=== PATIENT | male | born 1955 | race Caucasian/White ===

== ENCOUNTER → 2017-11-13 | Outpatient (CLI) | payer BC ==
--- NOTE | 2017-11-13 20:17 | CONS ---
CONSULTATION REASON FOR CONSULTATION: Snoring. This is a 62-year-old male patient, referred to the sleep center upon the request of his because of loud snoring. The patient is snoring very loudly, to the point where the patient is unable to sleep in the same bedroom with his , and they are currently sleeping in separate bedrooms. He himself denies having to quit breathing at night, nor does he have any episodes of waking up gasping for air or any choking sensation. He sleeps a good 7 to 8 hours. He goes to bed around 10:30 p.m., wakes up at 5:30 a.m. in the morning, and the patient does not have any tiredness or sleepiness during the day. No recent weight gain. His current [place] score is 6. He drinks 2 to 3 beers in the evening, No history of smoking. No reported history of sleep apnea. No history of daytime drowsiness. No history of any coronary artery disease or heart attacks. No history of any head and neck trauma. No issues with obstruction of nasal passages or postnasal drainage or rhinitis. PAST MEDICAL HISTORY: Negative. PAST SURGICAL HISTORY: 1. Appendectomy. 2. Colonoscopy. 3. Knee arthroscopy. DRUG ALLERGIES: NOT KNOWN. OUTPATIENT MEDICATIONS: None. SOCIAL HISTORY: The patient is a nonsmoker. Drinks 1 to 2 beers at nighttime. No history of alcoholism. No history of IV drugs. FAMILY HISTORY: Noncontributory. Negative for sleep apnea. There is positive family history for snoring. REVIEW OF SYSTEMS: Twelve-point review of systems was done. Positive findings are all mentioned above in the history of present illness. He wears a bite guard for grinding. No sleepwalking. Wakes up occasionally with a dry mouth. No anxiety or panic attacks. No heartburn. No palpitation. No nocturia. No restlessness in the lower extremities. No claustrophobia. No sexual dysfunction. No depression. PHYSICAL EXAMINATION: BP is 102/78, pulse 80, respirations 16, temperature 99.7, saturation 96% on room air. Neck size 17-1/2 inches. Weight is 204. Height is 5 feet 11 inches. [place] score is 6. GENERAL APPEARANCE: Calm, comfortable. Head is atraumatic, normocephalic. Neck is short, supple. Crowding of the posterior pharynx. Mallampati class 4. No overbite. LUNGS: Clear to auscultation. Heart sounds are regular rate and rhythm. Normal S1, S2. No S3, S4. No murmurs. ABDOMEN: Soft, nontender. No organomegaly. EXTREMITIES: No edema. No cyanosis or clubbing at this point. IMPRESSION: Snoring. Overall suspicion for obstructive sleep apnea is low, based on his clinical presentation. PLAN: We discussed various treatments offered for snoring. The patient was made aware that there is no certain treatment that can completely stop snoring. There are certain interventions that can be done to lessen the severity of snoring, and this includes weight loss, avoiding alcohol and sedative medications before bedtime, knowing that these can relax the throat and the tongue muscles. The patient was asked to sleep on his side to prevent the tongue from blocking the throat. Other options are oral appliance or anti-snore appliance. There are special dental appliances that can cause mandibular advancements and offer some relief in severe sleep apnea. Positive airway pressure can be utilized only if the patient has sleep apnea, and for that reason a home sleep study was ordered to assess the presence of sleep apnea. Surgeries for snoring are intended to widen the airway by removing tissue in the back of the throat, and this includes UPPP. Other procedures are radiofrequency ablation and/or pillar procedure. All of these interventions are not definitive treatments or effective treatments for snoring, and he was made aware of that. Proceed with a home sleep study and make further recommendations based on the findings. MMODL / IJN: [id number] /
== END | disposition home or self-care (01) ==
LOC: SLEEP 16:33
PROVIDERS: ATTEND Internal Medicine Critical Care Medicine
DX: R06.83 Snoring (principal); Z90.89 Acquired absence of other organs; Z98.890 Other specified postprocedural states
CPT/HCPCS: 99211

== ENCOUNTER → 2018-02-19 | Outpatient (CLI) | payer BC ==
--- NOTE | 2018-02-19 17:13 | PN ---
PROGRESS NOTE Jose Enrique is a 62-year-old male patient coming in for a compliancy check regarding his obstructive sleep apnea. The patient has been diagnosed having mild obstructive sleep apnea with AHI of 13. However, his sleep disease worse while in supine. Still he reported also loud snoring at time of admission, with some sleep fragmentation. He is trying to become more compliant to CPAP unit. He is currently using a full size face mask which later on got switched to a nose mask including the Eson nose mask and later on the patient was given AirFit P10 by a friend. All of these masks have not given this patient satisfactory mask seal. At this point in time, he is looking for alternatives. I had a lengthy discussion with the patient. The patient was given different options and ultimately decided to go with a DreamWear nose pillow. His compliance data is poor. His AHI while on treatment is down to 4.5, however he is having difficulty tolerating the CPAP unit and his CPAP use for more than 4 hours is 17 out of the past 29 days. REVIEW OF SYSTEMS: 12-point review of system was done. Positive findings are mentioned above in history of present illness. PHYSICAL EXAMINATION: BP is 159/89, pulse 80, respirations 16 and weight is 198, saturation 96% on room air. Temperature 98.6. General appearance: Calm and comfortable. HEENT: Head is atraumatic, normocephalic. NECK: Supple. No JVD. No goiter or neck masses. LUNGS: Diminished breath sounds. Otherwise clear. HEART: Sounds regular rate and rhythm. Normal S1, S2. No S3. No murmurs. ABDOMEN: Soft, nontender. No organomegaly. EXTREMITIES: No edema. No cyanosis or clubbing. IMPRESSION: 1. Symptomatic obstructive sleep apnea, AHI of 13, worse while supine, currently on CPAP unit. 2. Difficulty tolerating CPAP unit may be due to mask interface. 3. Loud snoring. PLAN: 1. Offer this patient a DreamWear nose mask. 2. See me back in short term followup to make sure that he is compliant in meeting insertion insurance guidelines for compliancy. 3. Encourage weight loss. 4. Implement good sleep hygiene measures. 5. We will continue to follow. MMODL / IJN: [id number] /
== END | disposition home or self-care (01) ==
LOC: SLEEP 15:02
PROVIDERS: ATTEND Internal Medicine Critical Care Medicine
DX: G47.33 Obstructive sleep apnea (adult) (pediatric) (principal); Z99.89 Dependence on other enabling machines and devices

== ENCOUNTER → 2018-03-19 | Outpatient (CLI) | payer BC ==
--- NOTE | 2018-03-19 20:01 | PN ---
PROGRESS NOTE This is a 62-year-old male patient who was originally referred to me for loud snoring. He had no major hypersomnia or sleepiness. He underwent a sleep evaluation and the patient was found to have mild obstructive sleep apnea with an AHI of 13 and his sleep was worse in the supine body position. I saw him in followup on 02/19/2013. At that time, he was having difficulty tolerating the CPAP treatment and his treatment and compliancy was suboptimal. I went over various mask being nose mask and fullface masks and ultimately I gave this patient AirFit F20 full face mask. The treatment itself was successful. The patient has demonstrated excellent compliancy with CPAP use for more than 4 hours achieving more than 80%. The patient's average CPAP use more than 4 hours per night. His AHI has been less than 5. Never the less, he reports that his sleep quality has gotten worse and he is waking up much more tired and sleepy while being on CPAP treatment. He has done aggressive efforts to improve his sleep apnea by losing weight. He has been able to lose 7 pounds and he is also avoiding to drink alcohol late in the afternoon or early evening hours. He is contemplating to stop the treatment for now. REVIEW OF SYSTEMS: 12-point review of system was done. Positive findings are mentioned above history of present illness. PHYSICAL EXAMINATION: BP is 165/96, pulse 98, respirations 16, temperature 98.1 saturation 95% on room air. GENERAL APPEARANCE: Calm, comfortable. Head is atraumatic, normocephalic. NECK: Supple. No JVD. No goiter or masses. No neck masses. LUNGS: Clear to auscultation. HEART: Sounds are regular rate and rhythm. Normal S1, S2. No S3. No murmurs. ABDOMEN: Soft, nontender. No organomegaly. EXTREMITIES: No edema. No cyanosis or clubbing. IMPRESSION: 1. Mild obstructive sleep apnea with an AHI of 13. 2. Loud snoring. 3. Difficulty in tolerating the CPAP. PLAN: 1. Will discontinue CPAP therapy as long as the patient remains asymptomatic. 2. Encourage further weight loss. The patient has already lost 7 pounds and this has positively impacted his sleep apnea course and symptoms. 3. He is also to avoid drinking alcohol late at night time. 4. Implement good sleep hygiene measures. 5. Discontinue CPAP therapy at this point. Contact me back if there is any worsening the symptoms of sleep apnea in general. MMODL / IJN: [id number] /
== END | disposition home or self-care (01) ==
LOC: SLEEP 15:01
PROVIDERS: ATTEND Internal Medicine Critical Care Medicine
DX: G47.33 Obstructive sleep apnea (adult) (pediatric) (principal); Z99.89 Dependence on other enabling machines and devices

== ENCOUNTER → 2018-08-19 | Outpatient (CLI) | payer BC ==
[2018-08-20 08:54] VITALS: BMI 25.7
== END ==
LOC: DBWHC3 15:59
PROVIDERS: ATTEND Family Medicine
DX: R73.09 Other abnormal glucose (principal)
CPT/HCPCS: 97802

== ENCOUNTER 2021-03-18 07:47 | Day surgery (SDC) | payer BC, OTHER ==
[2021-03-16 11:42] VITALS: BMI 27.1
[~2021-03-18 07:47] MED LIST: LACTATED RINGERS 1,000 ML IV SCH
[2021-03-18 08:24] VITALS: TEMP 97.4
[2021-03-18] MEDS ORDERED: PROPOFOL 10 MG/ML 20 ML VIAL IV ONE (08:58)
--- NOTE | 2021-03-18 09:22 | P.OP ---
Date of Procedure: 03/18/21 Preoperative Diagnosis: Screening colonoscopy Postoperative Diagnosis: Normal appearing colon Procedure(s) Performed: Colonoscopy Anesthesia: MAC Surgeon: Parth Johnston Condition: stable Disposition: same day Description of Procedure: Patient is brought Endo suite placed in left lateral decubitus position underwent sedation per department of anesthesia performed correct patient correct procedure correct site was verified rectal exam was performed no gross abnormalities were noted scope was passed from the rectum to the cecum with the slowly withdrawn being sure to visualize all healy of the colon on the way out there is no gross abnormalities. Scope was retroflexed in the rectum no gross abnormalities are noted patient tolerated the procedure well repeat colonoscopy in 5 years due to history of polyps and family history
[2021-03-18 09:37] VITALS: BP 150/86; PULSE 67; RESP 18
== END 2021-03-18 09:47 | disposition home or self-care (01) ==
LOC: ORWHC2ENDO 07:47
PROVIDERS: ATTEND Student in an Organized Health Care Education/Training Program
DX: Z12.11 Encounter for screening for malignant neoplasm of colon (principal)
CPT/HCPCS: J2704; G0121

== ENCOUNTER 2021-07-04 15:35 | Inpatient (IN) | payer OTHER ==
--- NOTE | 2021-07-04 17:31 | ED ---
General Adult HPI - General Chief complaint: Anxiety Stated complaint: revisit - anxiety Time Seen by Provider: 07/04/21 17:26 Source: patient Mode of arrival: ambulatory Limitations: no limitations - History of Present Illness Initial comments: Dictation was produced using [employer] dictation software. please excuse any grammatical, word or spelling errors. Chief Complaint: 65-year-old male requesting EPS evaluation History of Present Illness: A 65-year-old male he has no significant past medical history. Patient states he is here requesting mental health evaluation. Patient states he feels anxious. States that he has a sense of impending doom and that he is given a lose all of his family and belongings. Patient denies any suicidal ideation. No homicidal ideation. He is been having difficulty with insomnia. States that he is trying to get some help. He does not have any medical complaints. The ROS documented in this emergency department record has been reviewed and confirmed by me. Those systems with pertinent positive or negative responses have been documented in the HPI. All other systems are other negative and/or noncontributory. PHYSICAL EXAM: General Impression: Alert and oriented x3, not in acute distress HEENT: Normocephalic atraumatic, extra-ocular movements intact, pupils equal and reactive to light bilaterally, mucous membranes moist. Cardiovascular: Heart regular rate and rhythm Chest: Able to complete full sentences, no retractions, no tachypnea Abdomen: abdomen soft, non-tender, non-distended, no organomegaly Musculoskeletal: Pulses present and equal in all extremities, no peripheral edema Motor: no focal deficits noted Neurological: CN II-XII grossly intact, no focal motor or sensory deficits noted Skin: Intact with no visualized rashes Psych: Normal affect and mood ED course: 65-year-old male presents to the emergency department requesting EPS evaluation. Vital Signs upon arrival are within acceptable limits. Patient's well-appearing at bedside. Patient medically cleared for EPS evaluation. Patient evaluated by EPS. Will be admitted to mental health unit. - Related Data Home Medications Medication Instructions Recorded Confirmed Doxylamine Succinate [Unisom] 25 mg PO HS PRN 07/04/21 07/04/21 FLUoxetine HCL [PROzac] 10 mg PO DAILY 07/04/21 07/04/21 Multivitamins, Thera [Multivitamin 1 tab PO DAILY 07/04/21 07/04/21 (formulary)] Allergies Allergy/AdvReac Type Severity Reaction Status Date / Time No Known Allergies Allergy Verified 07/04/21 18:34 Review of Systems ROS Statement: Those systems with pertinent positive or pertinent negative responses have been documented in the HPI. ROS Other: All systems not noted in ROS Statement are negative. Past Medical History Past Medical History: No Reported History History of Any Multi-Drug Resistant Organisms: None Reported Past Surgical History: Appendectomy, Orthopedic Surgery Additional Past Surgical History / Comment(s): KNEE SCOPE (NOT SURE WHICH ONE). PREVIOUS COLONOSCOPIES Past Anesthesia/Blood Transfusion Reactions: No Reported Reaction Past Psychological History: No Psychological Hx Reported Smoking Status: Never smoker Past Alcohol Use History: Daily Past Drug Use History: Marijuana - Past Family History Father Family Medical History: Cancer Additional Family Medical History / Comment(s): COLON Mother Family Medical History: Cancer Additional Family Medical History / Comment(s): BREAST Brother(s) Family Medical History: Cancer Additional Family Medical History / Comment(s): PROSTATE General Exam Limitations: no limitations Course Vital Signs 07/04/21 15:49 Temperature 97.8 F Pulse Rate 86 Respiratory 18 Rate Blood Pressure 150/91 O2 Sat by Pulse 97 Oximetry Medical Decision Making - Lab Data Lab Results 07/04/21 Range/Units 17:34 Urine Opiates Screen Not Detected (NotDetected) Ur Oxycodone Screen Not Detected (NotDetected) Urine Methadone Screen Not Detected (NotDetected) Ur Propoxyphene Screen Not Detected (NotDetected) Ur Barbiturates Screen Not Detected (NotDetected) U Tricyclic Antidepress Not Detected (NotDetected) Ur Phencyclidine Scrn Not Detected (NotDetected) Ur Amphetamines Screen Not Detected (NotDetected) U Methamphetamines Scrn Not Detected (NotDetected) U Benzodiazepines Scrn Not Detected (NotDetected) Urine Cocaine Screen Not Detected (NotDetected) U Marijuana (THC) Screen Not Detected (NotDetected) Disposition Clinical Impression: Anxiety Disposition: ADMITTED IP TO THIS [facility] Condition: Fair Instructions (If sedation given, give patient instructions): Generalized Anxiety Disorder (ED) Referrals: Lele Whitmore DO [Primary Care Provider] - 1-2 days
[2021-07-04 18:38] LABS: Amphetamine Screen,Urine Not Detected (NotDetected); Barbiturate Screen,Urine Not Detected (NotDetected); Benzodiazepines Screen,Urine Not Detected (NotDetected); Cocaine Screen,Urine Not Detected (NotDetected); Methadone Screen, Urine Not Detected (NotDetected); Opiate Screen,Urine Not Detected (NotDetected); Oxycodone Screen, Urine Not Detected (NotDetected); Phencyclidine Screen,Urine Not Detected (NotDetected); Tricyclic Antidepressant,Urine Not Detected (NotDetected); Urn Cannabinoid Scrn Not Detected (NotDetected)
[2021-07-04] MEDS ORDERED: LORazepam 1 MG TAB PO STA (20:55)
[2021-07-05] MEDS ORDERED: ACETAMINOPHEN TAB 325 MG TAB PO PRN (00:05)
[2021-07-05] MEDS ORDERED: MAG HYDROX/AL HYDROX/SIMETH 30 ML CUP PO PRN (00:05)
[2021-07-05] MEDS ORDERED: MAGNESIUM HYDROXIDE 2,400 MG/10 ML CUP PO PRN (00:05)
[2021-07-05] MEDS ORDERED: LORazepam 1 MG TAB PO PRN (00:05)
[2021-07-05] MEDS ORDERED: HALOPERIDOL LACTATE 5 MG/ML 1 ML VIAL IM PRN (00:05)
[2021-07-05] MEDS ORDERED: traZODone HCL 100 MG TAB PO PRN (00:06)
[2021-07-05] MEDS ORDERED: haloperidoL 5 MG TAB PO PRN (00:06)
[2021-07-05] MEDS ORDERED: LORazepam 2 MG/ML INJ IM PRN (00:06)
[2021-07-05] MEDS ORDERED: FLUoxetine HCL 10 MG CAP PO SCH (09:00)
--- NOTE | 2021-07-05 11:35 | P.HP ---
Psychiatric H&P - . H&P Date: 07/05/21 History & Physical: Allergies Allergy/AdvReac Type Severity Reaction Status Date / Time No Known Allergies Allergy Verified 07/04/21 18:34 Vital Signs Temp 97.8 F 07/04/21 15:49 Pulse 86 07/04/21 15:49 Resp 18 07/04/21 15:49 BP 150/91 07/04/21 15:49 Pulse Ox 97 07/04/21 15:49 Intake & Output 07/04/21 07/05/21 07/05/21 18:59 06:59 18:59 Weight 85.275 kg Laboratory Last Values Urine Opiates Screen Not Detected (NotDetected) 07/04/21 17:34 Ur Oxycodone Screen Not Detected (NotDetected) 07/04/21 17:34 Urine Methadone Screen Not Detected (NotDetected) 07/04/21 17:34 Ur Propoxyphene Screen Not Detected (NotDetected) 07/04/21 17:34 Ur Barbiturates Screen Not Detected (NotDetected) 07/04/21 17:34 U Tricyclic Antidepress Not Detected (NotDetected) 07/04/21 17:34 Ur Phencyclidine Scrn Not Detected (NotDetected) 07/04/21 17:34 Ur Amphetamines Screen Not Detected (NotDetected) 07/04/21 17:34 U Methamphetamines Scrn Not Detected (NotDetected) 07/04/21 17:34 U Benzodiazepines Scrn Not Detected (NotDetected) 07/04/21 17:34 Urine Cocaine Screen Not Detected (NotDetected) 07/04/21 17:34 U Marijuana (THC) Screen Not Detected (NotDetected) 07/04/21 17:34 Coronavirus (PCR) Not Detected (Not Detectd) 07/05/21 01:30 07/05/21 11:35 IDENTIFYING DATA: Patient is a , retired, 65-year-old male with no significant psychiatric history, who presented to the hospital with elevated anxiety and suicidal ideation. HPI: Patient presented to the hospital on 07/04/2021, brought in by his and [id number] for a psychiatric assessment. As previously reported, the patient appeared to be very anxious and displayed significant psychomotor agitation while being examined in the emergency department. The patient had to undergo some breathing exercises in order to calm down enough to speak with the EPS nurse. The patient reported that he has been experiencing intermittent suicidal ideation and elevated anxiety. He reported that he was experiencing constant racing thoughts that were intrusive to the point that he has not slept for more than an hour or 2 per night for the past week. He has also had a significant decrease in his appetite. Family has been concerned that the patient has also l ost a lot of weight. The patient signed himself voluntarily on to the psychiatric unit. On examination the psychiatric unit, the patient reports that he has been feeling elevated anxiety and symptoms of depression since late April. He reports that he has been undergoing numerous life stressors including worrying about the foundation of his home, the need to buy his son of motor vehicle, his son's recent manic/psychotic break over the past year, as well as generalized anxiety of things including if he wired things correctly while he was working, as well as feeling shame and guilt from pornography that he has watched. The patient reports that along with his elevated anxiety, he has been experiencing significant symptoms of depression including decreased appetite, hopelessness, helplessness, anhedonia, and even suicidal ideation. He however denies any intention or plan and reports no prior attempts at suicide. In regards to sleep, the patient reports that he has been only receiving 2-3 hours of sleep per night. He states that he is constantly thinking about the various stressors and things that worry him. In regards to bipolar disorder, the patient denies any history of excessive energy, excessive spending, grandiosity, or impulsivity. He reports no history of auditory or visual hallucinations. He denies any paranoia or other delusions. PAST PSYCHIATRIC HISTORY: Patient states that his son recently had an episode of corinna. The patient was most recently started on Prozac and Unisom a few days prior to this admission. Patient denies any previous psychiatric hospital izations. He has a remote history of therapy which she went to after the of his father 1983 however has not followed with any outpatient psychotherapist or psychiatrist since. Patient denies any history of suicide attempts in the past. PMH: Past Medical History: No Reported History History of Any Multi-Drug Resistant Organisms: None Reported Past Surgical History: Appendectomy, Orthopedic Surgery Additional Past Surgical History / Comment(s): KNEE SCOPE (NOT SURE WHICH ONE). PREVIOUS COLONOSCOPIES Past Anesthesia/Blood Transfusion Reactions: No Reported Reaction Past Psychological History: No Psychological Hx Reported Smoking Status: Never smoker Past Alcohol Use History: Daily Past Drug Use History: Marijuana ALLERGIES: NO KNOWN DRUG ALLERGIES CHEMICAL DEPENDENCY HISTORY: The patient reports that he has been drinking 2-3 alcoholic beverages 5 days a week. He reports no tobacco use or illicit drug use. He does report a remote history of marijuana use. No reported history of alcohol withdrawal. FAMILY PSYCHIATRIC/SUBSTANCE USE HISTORY: Son with recent manic episode. SOCIAL HISTORY: Patient was born and raised in [place], [place]. 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 He has been to his [place] for the past 38 years. He has a son and daughter. His son lives in [place] and his daughter lives in [place]. He denies any legal history, service, but reports that he is of the [employer]. He states that he is part of a stricter sect of the [employer] mand[employer]. MENTAL STATUS EXAM: General Appearance: Patient appears to be stated age is alert, directable, and attempts to cooperate. Patient appears to have fair hygiene and grooming. Behavior: Patient is seated with elevated psychomotor activity. Eye contact is intermittent. Speech: Patient's speech is fluent and nonpressured. Mood/Affect: Patient reports their mood is anxious, affect is congruent and nervous. Suicidality/Homicidality: Patient denies having any homicidal ideation intent or plan. Denies any suicidal ideations intent or plan Perceptions: Patient denies any visual hallucinations and denies any auditory hallucinations Though content/process: There is no evidence of any delusional thought content and thought process is linear and goal-directed. Memory and concentration: AOX3, grossly intact for the purposes of this session. Can spell "WORLD" backwards Judgment and insight: Fair STRENGTHS/WEAKNESSES: Strength is that the patient has stable housing, stable income, and a supportive family. Weakness includes heavy alcohol use. INTELLECT: average IMPRESSIONS: Major depressive disorder, with anxious features Generalized anxiety disorder Alcohol use disorder, mild PLAN: -Patient is admitted under voluntary status to [facility]HU for stabilization of psychiatric symptoms and safety. Patient signed adult voluntary form and medication consent and is placed in patient's chart. -Medications : Will start patient on Prozac 30 mg at bedtime for depression/anxiety Remeron 15 mg by mouth at bedtime for depression/insomnia/appetite stimulation -Ativan and Haldol PRN for agitation/aggression -Patient was counselled on substance abuse and desired to cut back on use -Patient was informed of the risks, benefits and side effects of the medication and patient verbally consented to taking the medications. Patient signed med consent form and was placed in chart. -Internal Medicine consult to perform medical evaluation and physical. - on board for discharge planning. Encourage patient to participate in groups to work on coping skills. 07/05/21 11:35
[2021-07-05 14:59] LABS: ALT 25 U/L (4-49); AST 27 U/L (17-59); African American GFR (CKD) >90 (>60 ml/min/1.73 sqM); Albumin 4.3 g/dL (3.5-5.0); Alkaline Phosphatase 44 U/L (38-126); Anion Gap 9 mmol/L; Blood Urea Nitrogen 17 mg/dL (9-20); Calcium 9.1 mg/dL (8.4-10.2); Carbon Dioxide 25 mmol/L (22-30); Chloride 101 mmol/L (98-107); Glucose 188 mg/dL (74-99); Non-African American GFR(CKD) 86 (>60 ml/min/1.73 sqM); Potassium 3.9 mmol/L (3.5-5.1); Sodium 135 mmol/L (137-145); Total Bilirubin 0.5 mg/dL (0.2-1.3); Total Protein 6.9 g/dL (6.3-8.2)
[2021-07-05 15:06] LABS: Basophils % (A) 0 %; Eosinophils % (A) 1 %; HCT 44.9 % (39.0-53.0); Lymphocytes # (A) 1.1 k/uL (1.0-4.8); Lymphocytes % (A) 16 %; MCH 32.7 pg (25.0-35.0); MCHC 33.5 g/dL (31.0-37.0); MCV 97.5 fL (80.0-100.0); Mean Platelet Volume 7.6; Monocytes # (A) 0.3 k/uL (0-1.0); Monocytes % (A) 5 %; Neutrophils # (A) 5.3 k/uL (1.3-7.7); Neutrophils % (A) 77 %; Platelet Count 261 k/uL (150-450); RDW 12.5 % (11.5-15.5); WBC 6.9 k/uL (3.8-10.6)
[2021-07-05] MEDS: FLUoxetine HCL 10 MG CAP PO SCH (21:40)
[2021-07-05] MEDS: MIRTAZAPINE 15 MG TAB PO SCH (21:40)
[2021-07-06 00:26] LABS: Chol/HDL Ratio 2.55 Ratio; LDL Cholesterol,Calculated 90.6 mg/dL (0.0-131.0)
[2021-07-06 06:56] VITALS: RESP 16
--- NOTE | 2021-07-06 11:56 | P.PN ---
Progress Note - Text Progress Note Date: 07/06/21 Interval History: Patient was seen attending group and was directable and agreeable to speak with conventional mortgage underwriter in the office. The patient reports that he has difficult time sleeping last night. He reports that there was a combination of both the environment due to the every 15 minute checks as well as elevated anxiety. At this time patient denies any suicidal or homical ideations, intent or plan. Patient denies any auditory, visual hallucinations and denies any paranoia or delusions. Patient denies any side effects from the medications and has been compliant with meds. He expresses elevated anxiety and concern about his sleep and how his thinks he will be doing. He is otherwise not reporting any issues with his medications and has been attending groups. Mental Status Exam: General Appearance: Patient appears to be stated age is alert, directable, and cooperative. Behavior: Patient is calmly seated without any agitated behavior. Speech: Patient's speech is fluent and nonpressured. Mood/Affect: Mood is improving mildly, affect is congruent and constricted. Suicidality/Homicidality: Patient denies having any suicidal or homicidal ideation intent or plan. Perceptions: Patient denies any visual hallucinations and denies any auditory hallucinations Though content/process: There is no evidence of any delusional thought content and thought process is linear and goal-directed. Memory and concentration: AOX3, grossly intact for the purposes of this session Judgment and insight: Improving mildly Vital Signs Temp 99.1 F 07/06/21 06:38 Pulse 89 07/06/21 08:32 Resp 16 07/06/21 06:38 BP 142/87 07/06/21 08:32 Pulse Ox 97 07/04/21 15:49 Laboratory Results - Last 24 Hours 07/05/21 07/05/21 07/05/21 14:20 14:20 14:20 WBC 6.9 RBC 4.60 Hgb 15.0 Hct 44.9 MCV 97.5 MCH 32.7 MCHC 33.5 RDW 12.5 Plt Count 261 MPV 7.6 Neutrophils % 77 Lymphocytes % 16 Monocytes % 5 Eosinophils % 1 Basophils % 0 Neutrophils # 5.3 Lymphocytes # 1.1 Monocytes # 0.3 Eosinophils # 0.0 Basophils # 0.0 Sodium 135 L Potassium 3.9 Chloride 101 Carbon Dioxide 25 Anion Gap 9 BUN 17 Creatinine 0.94 Est GFR (CKD-EPI)AfAm >90 Est GFR (CKD-EPI)NonAf [address] Glu mg/dL 128 Hemoglobin A1c 6.1 H Calcium 9.1 Total Bilirubin 0.5 AST 27 ALT 25 Alkaline Phosphatase 44 Total Protein 6.9 Albumin 4.3 Triglycerides 122.00 Cholesterol 189.00 LDL Cholesterol, Calc 90.6 VLDL Cholesterol, Calc 24.40 HDL Cholesterol 74.00 H Cholesterol/HDL Ratio 2.55 TSH 0.914 Assessment Major depressive disorder, with anxious features Generalized anxiety disorder Alcohol use disorder, mild Plan: -Patient continues to meet criteria for inpatient psychiatric admission for symptom stabilization and safety. Patient has signed adult voluntary form and medication consent and was placed in patient's chart. -Medications: Prozac 30 mg by mouth at bedtime for depression/anxiety Remeron 15 mg daily at bedtime for depression/insomnia/appetite stimulation Trazodone 100 mg by mouth at bedtime for insomnia -When necessary Ativan and Haldol for agitation/aggression. -SW on board for discharge planning. Encouraged the patient to participate in milieu.
--- NOTE | 2021-07-06 17:51 | P.CONS ---
History of Present Illness - Reason for Consult Consult date: 07/05/21 Medical management Requesting physician: Jovan Tapia - Chief Complaint Increasing anxiety - History of Present Illness This is a very pleasant 65-year-old patient of Dr. Whitmore. Patient is brought into the ER by his and [id number]. Patient is very anxious an dpsychomotor agitation while being examined in the ER. Patient was made to do breathing exercises before he calmed down. He's been having suicidal ideation and increased anxiety. He's been having racing thoughts. The possibilities barely been sleeping. Decreased appetite. Per family patient also lost weight. She is anxious about several social issues. Including his family what he didn't show etc.. Patient has arthritis in the knees. Also get reflux symptoms sometimes. No fever no chills. Otherwise activity able to get around. 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 No smoking. Drinks 2-3 beer s about 5 times a week. When playing golf patient will drink up to 6 beers a day. No recreational drugs otherwise. Family history: Colon cancer Physical examination: VITAL SIGNS: 97.8, 86, 18, 150/91, 97% room air GENERAL: BMI 26.2, sitting up in chair, anxious appearing. EYES: Pupils equal. Conjunctiva normal. HEENT: External appearance of nose and ears normal, oral cavity grossly normal. NECK: JVD not raised; masses not palpable. HEART: First and second heart sounds are normal; no edema. LUNGS: Respiratory rate normal; clear to auscultation. ABDOMEN: Soft, nontender, liver spleen not palpable, no masses palpable. PSYCH: Alert and oriented x3; mood and affect normal. MUSCULOSKELETAL:No Clubbing/cyanosis;muscles-grossly intact. Evidence of OA especially in the hands NEUROLOGICAL: Cranial nerves grossly intact; no facial asymmetry, power and sensation grossly intact. LYMPHATICS: No lymph nodes palpable in the axilla and neck INVESTIGATIONS, reviewed in the clinical context: Urine drug screen: Negative COVID-19: Negative White count 6.9 hemoglobin 15 platelets 261 potassium 3.9 creatinine 0.94 LDL 90 TSH 0.914 Assessment and plan: -Primary osteoarthritis especially in the knees Tylenol as needed -Some anorexia secondary to uncontrolled anxiety Encourage oral intake -Severe insomnia secondary to uncontrolled anxiety Hopefully with medications anxiety she'll sleep better -Major depressive disorder with anxiety Medications per psychiatry -Alcohol use disorder This was discussed with the patient Care was discussed with the patient. Medications to continue. Follow-up with Dr. Whitmore upon discharge. Thank you Dr. Tapia Past Medical History Past Medical History: No Reported History History of Any Multi-Drug Resistant Organisms: None Reported Past Surgical History: Appendectomy, Orthopedic Surgery Additional Past Surgical History / Comment(s): KNEE SCOPE (NOT SURE WHICH ONE). PREVIOUS COLONOSCOPIES Past Anesthesia/Blood Transfusion Reactions: No Reported Reaction Past Psychological History: No Psychological Hx Reported Smoking Status: Never smoker Past Alcohol Use History: Daily Past Drug Use History: Marijuana - Past Family History Father Family Medical History: Cancer Additional Family Medical History / Comment(s): COLON Mother Family Medical History: Cancer Additional Family Medical History / Comment(s): BREAST Brother(s) Family Medical History: Cancer Additional Family Medical History / Comment(s): PROSTATE Medications and Allergies Home Medications Medication Instructions Recorded Confirmed Type Doxylamine Succinate [Unisom] 25 mg PO HS PRN 07/04/21 07/04/21 History FLUoxetine HCL [PROzac] 10 mg PO DAILY 07/04/21 07/04/21 History Multivitamins, Thera [Multivitamin 1 tab PO DAILY 07/04/21 07/04/21 History (formulary)] Allergies Allergy/AdvReac Type Severity Reaction Status Date / Time No Known Allergies Allergy Verified 07/04/21 18:34 Physical Exam Vitals: Vital Signs Temp Pulse Resp BP Pulse Ox 07/04/21 15:49 97.8 F 86 18 150/91 97 Intake and Output 07/04/21 07/05/21 07/05/21 22:59 06:59 14:59 Other: Weight 85.275 kg Results CBC & Chem 7: 07/05/21 14:20 07/05/21 14:20
[2021-07-06] MEDS: FLUoxetine HCL 10 MG CAP PO SCH (20:14)
[2021-07-06] MEDS: MIRTAZAPINE 15 MG TAB PO SCH (20:15)
[2021-07-06] MEDS ORDERED: QUEtiapine 50 MG TAB PO SCH (21:00)
[2021-07-06] MEDS ORDERED: traZODone HCL 100 MG TAB PO SCH (21:00)
[2021-07-07 07:03] VITALS: BP 136/87; PULSE 83; TEMP 99
--- NOTE | 2021-07-07 10:17 | P.DS ---
Providers Date of admission: 07/04/21 23:55 Expected date of discharge: 07/07/21 Attending physician: Jovan Tapia MD Consults: 07/05/21 00:05 Consult Physician Routine Consulting Provider: Luis Olivo Consult Reason/Comments: H&P and medical Do you want consulting provider notified?: Yes Primary care physician: Lele Whitmore - Discharge Diagnosis(es) (1) Major depressive disorder, recurrent episode with anxious distress Current Visit: Yes Status: Acute Priority: High (2) Generalized anxiety disorder Current Visit: Yes Status: Chronic Priority: Medium (3) Alcohol use disorder, mild, abuse Current Visit: Yes Status: Chronic Priority: Medium Hospital Course: Admission HPI: Patient is a , retired, 65-year-old male with no significant psychiatric history, who presented to the hospital with elevated anxiety and suicidal ideation. Patient presented to the hospital on 07/04/2021, brought in by his and [id number] for a psychiatric assessment. As previously reported, the patient appeared to be very anxious and displayed significant psychomotor agitation while being examined in the emergency department. The patient had to undergo some breathing exercises in order to calm down enough to speak with the EPS nurse. The patient reported that he has been experiencing intermittent suicidal ideation and elevated anxiety. He reported that he was experiencing constant racing thoughts that were intrusive to the point that he has not slept for more than an hour or 2 per night for the past week. He has also had a significant decrease in his appetite. Family has been concerned that the patient has also lost a lot of weight. The patient signed himself voluntarily on to the psychiatric unit. On examination the psychiatric unit, the patient reports that he has been feeling elevated anxiety and symptoms of depression since late April. He reports that he has been undergoing numerous life stressors including worrying about the foundation of his home, the need to buy his son of motor vehicle, his son's recent manic/psychotic break over the past year, as well as generalized anxiety of things including if he wired things correctly while he was working, as well as feeling shame and guilt from pornography that he has watched. The patient reports that along with his elevated anxiety, he has been experiencing significant symptoms of depression including decreased appetite, hopelessness, helplessness, anhedonia, and even suicidal ideation. He however denies any intention or plan and reports no prior attempts at suicide. In regards to sleep, the patient reports that he has been only receiving 2-3 hours of sleep per night. He states that he is constantly thinking about the various stressors and things that worry him. In regards to bipolar disorder, the patient denies any history of excessive energy, excessive spending, grandiosity, or impulsivity. He reports no history of auditory or visual hallucinations. He denies any paranoia or other delusions. Patient states that his son recently had an episode of corinna. The patient was most recently started on Prozac and Unisom a few days prior to this admission. Patient denies any previous psychiatric hospitalizations. He has a remote history of therapy which she went to after the of his father 1983 however has not followed with any outpatient psychotherapist or psychiatrist since. Patient denies any history of suicide attempts in the past. Hospital course: Upon admission to the unit patient was initially presenting as very anxious. Patient was however directable and agreeable to commence treatment. Patient got along well with other patients on the unit and followed unit protocol. Patient was compliant with the medications and denied any side effects throughout hospital course. Patient was started on Prozac and Remeron. Patient spoke of his stressors and engaged in therapy both group and individual. Patient was also seen by medical team for history and physical exam. Trazodone was added to the patient's regimen due to his inability to have a good night of sleep. Throughout the course of the hospitalization patient gradually improved with regards to depression and anxiety and sleep and became future oriented with improved insight and judgment. On the day of discharge patient denied any suicidal or homicidal ideations intent or plan denied any auditory or visual hallucinations. Patient endorsed wanting to live for his health and family. Trazodone was beneficial for the patient's sleep however the patient felt a little sedated in the morning. He was informed that he can take 50 mg at home rather than 100 mg in order to assess his tolerance. The patient denied any access to guns or weapons. Patient denied any paranoia and did not endorse any delusions. Patient does not have a significant history of substance abuse however was counseled on abstaining from all substances including alcohol and marijuana. Patient was also counseled on the medications and need for regular compliance and was encouraged to follow-up with their outpatient appointment for mental health and also for primary care. Prior to discharge a family meeting will be arranged by social media editor to answer any questions and ensure safety upon discharge. Mental status exam: General Appearance: Patient appears to be stated age is alert, pleasant, and cooperative. Patient is in no acute distress and has fair hygiene and grooming Behavior: Patient is calmly seated without any agitated behavior. Speech: Patient's speech is fluent and nonpressured. Mood/Affect: Patient reports their mood is "just a little tired", affect is co ngruent and euthymic. Suicidality/Homicidality: Patient denies having any suicidal or homicidal ideation intent or plan. Perceptions: Patient denies any auditory or visual hallucinations. Though content/process: There is no evidence of any delusional thought content and thought process is linear and goal-directed. Patient is future oriented. Memory and concentration: AOX3, grossly intact for the purposes of this session. Can spell "WORLD" backwards correctly. Judgment and insight: Improved Vital Signs Temp 99 F 07/07/21 06:44 Pulse 83 07/07/21 06:44 Resp 16 07/07/21 06:44 BP 136/87 07/07/21 06:44 Pulse Ox 97 07/04/21 15:49 Impression: Major depressive disorder, with anxious features Generalized anxiety disorder Alcohol use disorder, mild Plan: -Continue with discharge today as patient has improved and stabilized psychiatrically and is not currently an imminent threat to himself and/or others. Patient has numerous protective factors including stable housing, supportive family, and a good financial situation. The patient also has no previous attempts at suicide. -Continue medications: Prozac 30 mg by mouth at bedtime for depression/anxiety Trazodone 100 mg by mouth at bedtime for insomnia Remeron 15 mg by mouth at bedtime for depression/insomnia/appetite stimulation -Patient was counseled on the need for medication compliance and appropriate follow-up at mental health and also primary care for medical issues. Patient verbalized understanding and agreed. -Social work to arrange for and conduct family meeting to ensure safety upon discharge and answer any questions/concerns. Social work also to arrange for patients follow [facility] along with follow up with primary care provider. -Patient counseled on abstaining from recreational drugs and marijuana and alcohol. Was informed/educated on the adverse effects on their physical and mental health. Patient verbally agreed and understood. -Patient was instructed to return to the hospital or seek immediate medical care if their psychiatric or medical symptoms do worsen or reoccur. -Psychoeducation and supportive therapy provided to patient. Risks and benefits of pharmacological treatment versus the risks and benefits of nontreatment weight and discussed. Informed consent discussion held. Common side effects of psychotropics discussed such as, but not limited to headache, GI disturbance, sexual dysfunction, movement disorders, sedation, and orthostatic hypotension. Life threatening and blackbox warnings of prescribed medications also discussed. Potential risks of operating a vehicle or heavy machinery discussed with patient at length. Advised on importance of compliance and a reliable and responsible manner. Patient advised to review FDA consumer labeling of all medications prior to taking. Patient verbalized understanding of potential risks, and agrees with current treatment plan. Patient advised to medically contact physician/emergency personnel if any acute changes in condition occur. Allergies Allergy/AdvReac Type Severity Reaction Status Date / Time No Known Allergies Allergy Verified 07/04/21 18:34 Laboratory Results WBC 6.9 k/uL (3.8-10.6) 07/05/21 14:20 RBC 4.60 m/uL (4.30-5.90) 07/05/21 14:20 Hgb 15.0 gm/dL (13.0-17.5) 07/05/21 14:20 Hct 44.9 % (39.0-53.0) 07/05/21 14:20 MCV 97.5 fL (80.0-100.0) 07/05/21 14:20 MCH 32.7 pg (25.0-35.0) 07/05/21 14:20 MCHC 33.5 g/dL (31.0-37.0) 07/05/21 14:20 RDW 12.5 % (11.5-15.5) 07/05/21 14:20 Plt Count 261 k/uL (150-450) 07/05/21 14:20 MPV 7.6 07/05/21 14:20 Neutrophils % 77 % 07/05/21 14:20 Lymphocytes % 16 % 07/05/21 14:20 Monocytes % 5 % 07/05/21 14:20 Eosinophils % 1 % 07/05/21 14:20 Basophils % 0 % 07/05/21 14:20 Neutrophils # 5.3 k/uL (1.3-7.7) 07/05/21 14:20 Lymphocytes # 1.1 k/uL (1.0-4.8) 07/05/21 14:20 Monocytes # 0.3 k/uL (0-1.0) 07/05/21 14:20 Eosinophils # 0.0 k/uL (0-0.7) 07/05/21 14:20 Basophils # 0.0 k/uL (0-0.2) 07/05/21 14:20 Sodium 135 mmol/L (137-145) L 07/05/21 14:20 Potassium 3.9 mmol/L (3.5-5.1) 07/05/21 14:20 Chloride 101 mmol/L (98-107) 07/05/21 14:20 Carbon Dioxide 25 mmol/L (22-30) 07/05/21 14:20 Anion Gap 9 mmol/L 07/05/21 14:20 BUN 17 mg/dL (9-20) 07/05/21 14:20 Creatinine 0.94 mg/dL (0.66-1.25) 07/05/21 14:20 Est GFR (CKD-EPI)AfAm >90 (>60 ml/min/1.73 sqM) 07/05/21 14:20 Est GFR (CKD-EPI)NonAf 86 (>60 ml/min/1.73 sqM) 07/05/21 14:20 Glucose 188 mg/dL (74-99) H 07/05/21 14:[address] Glu mg/dL 128 07/05/21 14:20 Hemoglobin A1c 6.1 % (0.0-6.0) H 07/05/21 14:20 Calcium 9.1 mg/dL (8.4-10.2) 07/05/21 14:20 Total Bilirubin 0.5 mg/dL (0.2-1.3) 07/05/21 14:20 AST 27 U/L (17-59) 07/05/21 14:20 ALT 25 U/L (4-49) 07/05/21 14:20 Alkaline Phosphatase 44 U/L (38-126) 07/05/21 14:20 Total Protein 6.9 g/dL (6.3-8.2) 07/05/21 14:20 Albumin 4.3 g/dL (3.5-5.0) 07/05/21 14:20 Triglycerides 122.00 mg/dL (0.00-149.00) 07/05/21 14:20 Cholesterol 189.00 mg/dL (0.00-200.00) 07/05/21 14:20 LDL Cholesterol, Calc 90.6 mg/dL (0.0-131.0) 07/05/21 14:20 VLDL Cholesterol, Calc 24.40 mg/dL (5.00-40.00) 07/05/21 14:20 HDL Cholesterol 74.00 mg/dL (40.00-60.00) H 07/05/21 14:20 Cholesterol/HDL Ratio 2.55 Ratio 07/05/21 14:20 TSH 0.914 mIU/L (0.465-4.680) 07/05/21 14:20 Urine Opiates Screen Not Detected (NotDetected) 07/04/21 17:34 Ur Oxycodone Screen Not Detected (NotDetected) 07/04/21 17:34 Urine Methadone Screen Not Detected (NotDetected) 07/04/21 17:34 Ur Propoxyphene Screen Not Detected (NotDetected) 07/04/21 17:34 Ur Barbiturates Screen Not Detected (NotDetected) 07/04/21 17:34 U Tricyclic Antidepress Not Detected (NotDetected) 07/04/21 17:34 Ur Phencyclidine Scrn Not Detected (NotDetected) 07/04/21 17:34 Ur Amphetamines Screen Not Detected (NotDetected) 07/04/21 17:34 U Methamphetamines Scrn Not Detected (NotDetected) 07/04/21 17:34 U Benzodiazepines Scrn Not Detected (NotDetected) 07/04/21 17:34 Urine Cocaine Screen Not Detected (NotDetected) 07/04/21 17:34 U Marijuana (THC) Screen Not Detected (NotDetected) 07/04/21 17:34 Coronavirus (PCR) Not Detected (Not Detectd) 07/05/21 01:30 Patient Condition at Discharge: Stable Plan - Discharge Summary Discharge Rx Participant: No New Discharge Prescriptions: New FLUoxetine HCL [PROzac] 30 mg PO HS 30 Days cap traZODone HCL [Desyrel] 100 mg PO HS 30 Days tab Mirtazapine [Remeron] 15 mg PO HS 30 Days tab Continue Multivitamins, Thera [Multivitamin (formulary)] 1 tab PO DAILY Discontinued FLUoxetine HCL [PROzac] 10 mg PO DAILY Doxylamine Succinate [Unisom] 25 mg PO HS PRN PRN Reason: Insomnia Discharge Medication List Multivitamins, Thera [Multivitamin (formulary)] 1 tab PO DAILY 07/04/21 [History] FLUoxetine HCL [PROzac] 30 mg PO HS 30 Days cap 07/07/21 [Rx] Mirtazapine [Remeron] 15 mg PO HS 30 Days tab 07/07/21 [Rx] traZODone HCL [Desyrel] 100 mg PO HS 30 Days tab 07/07/21 [Rx] Follow up Appointment(s)/Referral(s[facility] - 07/12/21 2:00 pm (07/12/2021 @ 2:00 PM WITH Lele Romeo DO [Primary Care Provider] - 1-2 days Patient Instructions/Handouts: Depression (DC), Generalized Anxiety Disorder (ED) Activity/Diet/Wound Care/Special Instructions: Activity and diet as tolerated. Avoid the use of street drugs and alcohol. Take all medications as prescribed. When you are in need of refills on your medications please contact your medical provider and/or outpatient psychiatrist to have this done. Please go to scheduled outpatient appointment for aftercare treatment. If symptoms return or become worse, call the crisis line at and/or go to the nearest emergency room for evaluation Discharge Disposition: HOME SELF-CARE
[2021-07-07] MEDS ORDERED: traZODone HCL 50 MG TAB PO SCH (21:00)
== END 2021-07-07 13:10 | disposition home or self-care (01) | DRG 885 ==
LOC: EC 15:35 → 3MHU 23:55
PROVIDERS: ADMIT Psychiatry & Neurology Psychiatry; ATTEND Psychiatry & Neurology Psychiatry
DX: F33.9 Major depressive disorder, recurrent, unspecified (principal); R45.851 Suicidal ideations; Z20.822 Contact with and (suspected) exposure to COVID-19; F41.1 Generalized anxiety disorder; F10.10 Alcohol abuse, uncomplicated; G47.00 Insomnia, unspecified; M17.0 Bilateral primary osteoarthritis of knee; Z79.899 Other long term (current) drug therapy; Z87.19 Personal history of other diseases of the digestive system; Z90.49 Acquired absence of other specified parts of digestive tract; Z87.39 Personal history of other diseases of the musculoskeletal system and connective tissue; Z63.4 Disappearance and death of family member; Z98.890 Other specified postprocedural states; Z80.0 Family history of malignant neoplasm of digestive organs; Z80.3 Family history of malignant neoplasm of breast; Z80.42 Family history of malignant neoplasm of prostate; Z71.41 Alcohol abuse counseling and surveillance of alcoholic; Z71.51 Drug abuse counseling and surveillance of drug abuser
CPT/HCPCS: 80053; 80061; 80306; 82075; 83036; 84443; 85025; 87635; 99285

== ENCOUNTER → 2022-04-24 | Outpatient (CLI) | payer OTHER ==
--- NOTE | 2022-04-24 09:17 | MR ---
EXAMINATION TYPE: MR knee RT wo con DATE OF EXAM: 04/24/2022 COMPARISON: None HISTORY: Right knee pain, injured in twisting motion playing golf. TECHNIQUE: Multiplanar, multisequence imaging of the right knee is performed without IV contrast. FINDINGS: MENISCI: The lateral meniscus has a normal appearance. Complex tear of the body and posterior horn of the medial meniscus. No prior meniscal cyst. LIGAMENTS AND TENDONS: The anterior cruciate ligament, posterior cruciate ligament, medial collatera l ligament, fibular collateral ligament, and patellar retinacula are intact. Mucoid degeneration of t he ACL. The patellar tendon, quadriceps tendon, IT band, pes anserinus tendons, semimembranosus tend on, popliteus tendon, and biceps femoris tendon are all within normal limits. OSSEOUS STRUCTURES AND CARTILAGE: The cartilage of the patellofemoral joint demonstrates areas of he terogeneous signal. The cartilage of the medial and lateral knee joint compartments demonstrate hete rogenous signal. Full-thickness defect measuring 6 x 11 mm involving the anterior medial femoral cond yle cartilage with associated subchondral cystic formation. The remaining bone marrow signal intensit y is within normal limits. No significant joint effusion. Prepatellar soft tissue edema. IMPRESSION: 1. Complex tear of the medial meniscus. 2. Mild to moderate tricompartmental osteoarthritic changes with full-thickness defect involving the anterior medial femoral condyle cartilage.
== END | disposition home or self-care (01) ==
LOC: RADMRIMAIN 06:01
PROVIDERS: ATTEND Orthopaedic Surgery
DX: M17.11 Unilateral primary osteoarthritis, right knee (principal); M23.306 Other meniscus derangements, unspecified meniscus, right knee